=== PATIENT | female | born 1985 | race Caucasian/White ===

== ENCOUNTER 2022-06-27 09:45 | Emergency (ER) | payer OTHER, MEDICAID, SELFPAY ==
[2022-06-27 10:02] VITALS: BP 114/55; PULSE 88; RESP 16; TEMP 35.9; O2SAT 97; BMI 26.6
--- NOTE | 2022-06-27 10:27 | ED_ITS ---
HPI - Female Genitourinary General Chief complaint: Urogenital-Female Stated complaint: UTI R/O Time Seen by Provider: 06/27/22 10:21 Source: patient Mode of arrival: EMS Limitations: no limitations History of Present Illness HPI Narrative: This is a 37-year-old female who presents with EMS for evaluation for lower back pain and urinary frequency and trouble holding her. Patient states that the pain only happens when she tries to hold her urine for a long time. She states that she does not have pain if she is not trying to hold her urine. She denies any pain radiating down her legs. No saddle anesthesia no numbness or tingling. No weakness. No difficulty with ambulation. She states that she is had urinary issues on and off for awhile but has not pursued any treatment. She denies fevers or chills. No chest pain or shortness of breath. No nausea or vomiting. Patient states that the pain is not midline but more in the flank bilaterally. She denies vaginal bleeding or discharge. She denies any fecal incontinence, no diarrhea constipation. She is in process of seeking treatment at rehab facility and was using fentanyl regularly which he state would cover up her back pain. Patient states that she has not injected in the past and up until recently. She states she is had a tubal ligation. She denies other medical problems was never on any prescription medications. Patient denies any allergies to medication. She does use tobacco, occasional alcohol, does use illicit and has used injectable drugs before. Related Data Previous Rx's Medication Instructions Recorded sulfamethoxazole 800 1 tab PO BID #20 tabs 06/27/22 mg-trimethoprim 160 mg tablet (Bactrim DS) Review of Systems Review of Systems ROS Unobtainable: All systems reviewed & are unremarkable except as noted in HPI and below Exam Narrative Exam Narrative: GENERAL: Alert and oriented x three, mild distress. HEENT: Head normocephalic, atraumatic, EOMI, pupils reactive, face symmetric, moist mucous membranes NECK: Supple, full range of motion CARDIOVASCULAR: Regular rate and rhythm without murmurs, rubs or gallops. RESPIRATORY: Breath sounds equal bilaterally, no wheezes rales or rhonchi. ABDOMEN: Soft, nontender. Normoactive bowel sounds all 4 quadrants. No guarding or rebound, rigidity, no mass : Mild bilateral CVA tenderness BACK: No cervical, thoracic or lumbar vertebral point tenderness. Patient has normal range of motion. Patient's gait is normal. Rectal exam is deferred. Muscle strength is 5/5 in lower extremities, DTRs are 2/4 and lower extremities. Dorsalis pedis and tibialis pulses are 2+ and lower extremities. Sensation is intact in the lower extremities. No saddle anesthesia. EXTREMITIES: Normal range of motion, no clubbing or edema. Neurovascularly intact NEUROLOGICAL: Cranial nerves II through XII grossly intact. Moving all extremities SKIN: Warm, dry, no petechiae, no rashes or lesions. Initial Vital Signs Initial Vital Signs: Vital Signs Temperature 96.6 F L 06/27/22 10:02 Pulse Rate 88 06/27/22 10:02 Respiratory Rate 16 06/27/22 10:02 Blood Pressure 114/55 L 06/27/22 10:02 Pulse Oximetry 97 06/27/22 10:02 Oxygen Delivery Method 06/27/22 10:02 Course Orders Ordered: ED Orders 06/27/22 09:50 Urine Culture Stat Urine Microscopic Stat Discontinued Medications Ketorolac Tromethamine (Ketorolac 30 Mg/Ml Vial) 30 mg IM NOW ONE Stop: 06/27/22 10:22 Last Admin: 06/27/22 10:41 Dose: 30 mg Documented By: FREDDY Trimethoprim/Sulfamethoxazole (Trimeth/Sulfa 160/800 (Ds) Tablet) 1 tab PO NOW ONE Stop: 06/27/22 10:22 Last Admin: 06/27/22 10:41 Dose: 1 tab Documented By: FREDDY Vital Signs Vital signs: Vital Signs - 8 hr 06/27/22 10:02 Temperature 96.6 F L Pulse Rate 88 Respiratory Rate 16 Blood Pressure 114/55 L Pulse Oximetry 97 Oxygen Delivery Method Room Air MDM - Female Genitourinary Lab Data Labs: Lab Results 06/27/22 Range/Units 09:50 Urine RBC None seen (0-5/HPF) Urine WBC None seen (0-5/HPF) Ur Squamous Epith Cells 0-1 /hpf (0-5/HPF) Urine Bacteria Many (>30) H (None) Ur Culture Indicated? Specimen cultured Point of Care Testing Test Results Negative Urine Dip Bedside Urine Glucose Negative Bedside Urine Bilirubin - Negative Bedside Urine Ketone +/- 5 Urine Specific [place] 1.005 Bedside Urine Occult Blood - Negative Bedside Urine pH 7.0 Bedside Urine Protein - Negative Bedside Urine Urobilinogen - Negative Bedside Urine Nitrite + Positive Bedside Urine Leukocytes - Negative Esterase MDM Narrative Medical decision making narrative: This is a 37-year-old female who comes in with complaint of possible UTI she does describe bilateral lower back pain but sounds like more flank pain on examination and after discussion. There is no midline tenderness she is not h aving any other back issues such as pain radiating down the legs no numbness, tingling weakness, new neurologic changes. She describes that the pain is worse when she hold her urine for a long time purposefully. She does state it has been hurting for a long time but that she is ignored it. She does have a nitrite positive urine. Her exam is overall reassuring and she does have risk factors for infection in her back but her exam and her description of her symptoms do not make me suspicious. Plan to treat for UTI/pyelonephritis with return precautions. Discharge Plan Departure Patient Disposition: Home Clinical Impression: Pyelonephritis Instructions: DI for Kidney Infection Activity Restrictions/Additional Instructions: Your urine and findings today are consistent with a kidney infection. Take antibiotics until completely gone. Prescription printed to go with you. You can take Tylenol up to a 1000 mg every 6 hours and/or ibuprofen up to 800 mg every 8 hours as needed for pain. Please return for fevers worsening symptoms, if you are having rapidly worsening pain new numbness, tingling or weakness new changes in loss of bowel or bladder control, difficulty with ambulating, persistent vomiting or other new or concerning changes. Prescriptions: New sulfamethoxazole-trimethoprim [Bactrim DS] 800-160 mg tablet 1 tab PO BID Qty: 20 0RF Stand Alone Forms: Patient Portal/API
[2022-06-27 10:34] LABS: Bacteria Urine Many (>30); Culture Indicated Urine Specimen Cultured; RBC Urine None Seen (0-5/HPF); Squamous Epithelial Cell Urine 0-1 /HPF (0-5/HPF); WBC Urine None Seen (0-5/HPF)
[2022-06-27] MEDS: KETOROLAC 30 MG/ML VIAL IM (10:41)
[2022-06-27] MEDS: TRIMETH/SULFA 160/800 (DS) TABLET 1 TAB PO (10:41)
== END 2022-06-27 11:23 | disposition home or self-care (01) ==
LOC: ED 11:10
PROVIDERS: Emergency Provider Emergency Medicine
DX: N12 Tubulo-interstitial nephritis, not specified as acute or chronic (principal)
CPT/HCPCS: 81003; 81015; 81025; 87077; 87086; 87186; 96372; 99283; J1885